=== PATIENT | male | born 1940 | race Caucasian/White ===

== ENCOUNTER 2017-12-08 10:41 | Emergency (ER) | payer MEDICARE ==
[~2017-12-08] VITALS: Ht 172.7 cm; Wt 72.6 kg
[~2017-12-08 10:41] MED LIST: ALPR.5 PO; AMITIZA PO; AZIT250 PO; CIPR500 PO; Colace100 MG PO; DOCU100 PO; DOXY100 PO; HYDCOR20 PO; Kristalose20 GM PO; LACT10SY PO; LORA2 PO; MAGCIT300 PO; MINO100 PO; MIRT15 PO; MIRT30 PO; NABU750 PO; POLY17UD PO; QUET100 PO; QUET25 PO; THYROID; ZOLP10 PO; [UNRECOGNIZED DRUG - OTHER]
[2017-12-08] MEDS ORDERED: ESCI20 PO (10:55)
[2017-12-08] MEDS ORDERED: ESZO2 PO (10:55)
[2017-12-08 11:37] LABS: BASOPHILS ABSOLUTE AUTO 0.03 K/mm3 (0.00-0.23); BASOPHILS PERCENT AUTO 1 % (0-2); EOSINOPHILS ABSOLUTE AUTO 0.04 K/mm3 (0.00-0.68); EOSINOPHILS PERCENT AUTO 1 % (0-6); Hematocrit 41.1 % (37.0-53.0); Hemoglobin 14.5 g/dL (13.5-17.5); IMMATURE GRAN ABSOLUTE AUTO 0.01 K/mm3 (0.00-0.10); IMMATURE GRAN PERCENT AUTO 0 % (0-1); LYMPHOCYTES ABSOLUTE AUTO 0.64 K/mm3 (0.84-5.20); LYMPHOCYTES PERCENT AUTO 17 % (21-46); MONOCYTES ABSOLUTE AUTO 0.42 K/mm3 (0.16-1.47); MONOCYTES PERCENT AUTO 11 % (4-13); Mean Corpuscular HGB 34.4 pg (26.0-34.0); Mean Corpuscular HGB Conc 35.3 g/dL (31.5-36.5); Mean Corpuscular Volume 98 fL (80-100); Mean Platelet Volume 9.1 fL (9.1-12.4); NEUTROPHILS ABSOLUTE AUTO 2.71 K/mm3 (1.96-9.15); NEUTROPHILS PERCENT AUTO 70 % (41-73); Platelet Count 182 K/mm3 (150-400); RDW Coefficient Variation 11.2 % (11.7-14.2); RDW Standard Deviation 40.6 fL (35.1-46.3); Red Blood Cell Count 4.21 M/mm3 (4.30-5.90); White Blood Cell Count 3.85 K/mm3 (4.00-11.30)
[2017-12-08 11:54] LABS: Alanine Aminotransfer (ALT/SGP 20 U/L (12-78); Albumin, Blood 4.2 g/dL (3.4-5.0); Albumin/Globulin Ratio 1.4 (0.8-1.8); Alk Phos 62 U/L (50-136); Anion Gap 7 mmol/L (6-16); Aspartate Aminotrans (AST/SGOT 15 U/L (12-37); Bilirubin, Total 0.7 mg/dL (0.1-1.0); Blood Urea Nitrogen 9 mg/dL (8-24); Bun/Creatinine Ratio 19.3 (12.0-20.0); CO2, Blood 30 mmol/L (21-32); Calcium, Blood 8.6 mg/dL (8.5-10.1); Chloride, Blood 96 mmol/L (98-108); Creatinine, Blood 0.47 mg/dL (0.60-1.20); Glomerular Filtration Rate >60 (60-); Glucose, Blood 98 mg/dL (70-99); Potassium, Blood 4.2 mmol/L (3.5-5.5); Sodium, Blood 133 mmol/L (136-145); Total Protein, Blood 7.2 g/dL (6.4-8.2)
== END 2017-12-08 14:55 | disposition home or self-care (01) ==
LOC: ER 10:41
PROVIDERS: Emergency Medicine
DX: R10.84 Generalized abdominal pain (principal); R10.32 Left lower quadrant pain; Z88.8 Allergy status to other drugs, medicaments and biological substances; Z79.899 Other long term (current) drug therapy; F32.9 Major depressive disorder, single episode, unspecified; Z85.46 Personal history of malignant neoplasm of prostate; Z87.891 Personal history of nicotine dependence
CPT/HCPCS: 36415; 74018; 80053; 81000; 85025; 93005; 93010; 96361; 96374; 96375; 99284; J1885; J2405; J7030

== ENCOUNTER 2019-01-08 00:01 | Emergency (ER) | payer MEDICARE ==
[~2019-01-08] VITALS: Ht 175.3 cm; Wt 79.4 kg
[~2019-01-08 00:01] MED LIST changes: +ESCI20 PO; +ESZO2 PO
[2019-01-08 01:16] LABS: BASOPHILS ABSOLUTE AUTO 0.05 K/mm3 (0.00-0.23); BASOPHILS PERCENT AUTO 1 % (0-2); EOSINOPHILS ABSOLUTE AUTO 0.07 K/mm3 (0.00-0.68); EOSINOPHILS PERCENT AUTO 1 % (0-6); Hematocrit 39.7 % (37.0-53.0); Hemoglobin 13.6 g/dL (13.5-17.5); IMMATURE GRAN ABSOLUTE AUTO 0.02 K/mm3 (0.00-0.10); IMMATURE GRAN PERCENT AUTO 0 % (0-1); LYMPHOCYTES ABSOLUTE AUTO 1.01 K/mm3 (0.84-5.20); LYMPHOCYTES PERCENT AUTO 17 % (21-46); MONOCYTES ABSOLUTE AUTO 0.76 K/mm3 (0.16-1.47); MONOCYTES PERCENT AUTO 13 % (4-13); Mean Corpuscular HGB 33.7 pg (26.0-34.0); Mean Corpuscular HGB Conc 34.3 g/dL (31.5-36.5); Mean Corpuscular Volume 99 fL (80-100); Mean Platelet Volume 9.1 fL (9.1-12.4); NEUTROPHILS ABSOLUTE AUTO 4.13 K/mm3 (1.96-9.15); NEUTROPHILS PERCENT AUTO 68 % (41-73); Platelet Count 185 K/mm3 (150-400); RDW Coefficient Variation 11.4 % (11.7-14.2); RDW Standard Deviation 41.1 fL (35.1-46.3); Red Blood Cell Count 4.03 M/mm3 (4.30-5.90); White Blood Cell Count 6.04 K/mm3 (4.00-11.30)
[2019-01-08 01:30] LABS: Source, Urine Clean Catch
[2019-01-08 01:34] LABS: Bilirubin, Urine Neg (Neg); Blood, Urine Neg (Neg); Glucose Qualitative, Urine Neg (Neg); Ketones, Urine Neg (Neg); Leukocyte Esterase, Urine 1+ (Neg); Nitrite, Urine Neg (Neg); Protein, Urine Neg (Neg); Specific Gravity, Urine 1.015 (1.003-1.022); Urobilinogen, Urine NORM (Normal)
[2019-01-08 01:42] LABS: Appearance, Urine Clear (Clear); Color, Urine Yellow (P-Yellow)
[2019-01-08 01:43] LABS: Amorphous Light (0-Heavy); Bacteria Rare /hpf; Red Blood Cells, Urine Not Seen /hpf (0-2); Squamous Epithelial Cells Rare /hpf (Few); White Blood Cells, Urine 0-2 /hpf (0-5)
[2019-01-08 01:45] LABS: Alanine Aminotransfer (ALT/SGP 25 U/L (12-78); Albumin/Globulin Ratio 1.4 (0.8-1.8); Alk Phos 58 U/L (50-136); Anion Gap 8 mmol/L (6-16); Aspartate Aminotrans (AST/SGOT 18 U/L (12-37); Bilirubin, Total 0.6 mg/dL (0.1-1.0); Blood Urea Nitrogen 21 mg/dL (8-24); Bun/Creatinine Ratio 38.7 (12.0-20.0); CO2, Blood 29 mmol/L (21-32); Calcium, Blood 8.6 mg/dL (8.5-10.1); Chloride, Blood 100 mmol/L (98-108); Creatinine, Blood 0.54 mg/dL (0.60-1.20); Globulin, Blood 2.9 g/dL (2.2-4.0); Glomerular Filtration Rate >60 (60-); Glucose, Blood 108 mg/dL (70-99); Potassium, Blood 4.2 mmol/L (3.5-5.5); Sodium, Blood 137 mmol/L (136-145); Total Protein, Blood 6.9 g/dL (6.4-8.2)
== END 2019-01-08 02:45 | disposition home or self-care (01) ==
LOC: ER 00:01
PROVIDERS: Physician Assistant
DX: R42 Dizziness and giddiness (principal); Z88.8 Allergy status to other drugs, medicaments and biological substances; Z79.899 Other long term (current) drug therapy; Z87.891 Personal history of nicotine dependence; W19.XXXA Unspecified fall, initial encounter
CPT/HCPCS: 36415; 80053; 81001; 85025; 87077; 87086; 87186; 99284

== ENCOUNTER 2019-03-16 15:31 | Observation (INO) | payer MEDICARE ==
[~2019-03-16] VITALS: Ht 172.7 cm; Wt 72.6 kg
[2019-03-16 17:50] LABS: BASOPHILS ABSOLUTE AUTO 0.06 K/mm3 (0.00-0.23); BASOPHILS PERCENT AUTO 1 % (0-2); EOSINOPHILS ABSOLUTE AUTO 0.11 K/mm3 (0.00-0.68); EOSINOPHILS PERCENT AUTO 2 % (0-6); Hematocrit 44.5 % (37.0-53.0); IMMATURE GRAN ABSOLUTE AUTO 0.01 K/mm3 (0.00-0.10); IMMATURE GRAN PERCENT AUTO 0 % (0-1); LYMPHOCYTES ABSOLUTE AUTO 1.07 K/mm3 (0.84-5.20); LYMPHOCYTES PERCENT AUTO 18 % (21-46); MONOCYTES ABSOLUTE AUTO 0.78 K/mm3 (0.16-1.47); MONOCYTES PERCENT AUTO 13 % (4-13); Mean Corpuscular HGB 33.9 pg (26.0-34.0); Mean Corpuscular HGB Conc 33.7 g/dL (31.5-36.5); Mean Corpuscular Volume 101 fL (80-100); Mean Platelet Volume 9.4 fL (9.1-12.4); NEUTROPHILS ABSOLUTE AUTO 4.01 K/mm3 (1.96-9.15); NEUTROPHILS PERCENT AUTO 66 % (41-73); Platelet Count 214 K/mm3 (150-400); RDW Coefficient Variation 11.4 % (11.7-14.2); RDW Standard Deviation 42.5 fL (35.1-46.3); Red Blood Cell Count 4.42 M/mm3 (4.30-5.90); White Blood Cell Count 6.04 K/mm3 (4.00-11.30)
[2019-03-16 18:05] LABS: Ethanol (Alcohol), Blood, Med <3 mg/dL; Salicylate <1.7 mg/dL (2.8-20.0)
[2019-03-16 18:12] LABS: Source, Urine Clean Catch
[2019-03-16 18:13] LABS: Alanine Aminotransfer (ALT/SGP 29 U/L (12-78); Albumin, Blood 4.6 g/dL (3.4-5.0); Albumin/Globulin Ratio 1.4 (0.8-1.8); Alk Phos 62 U/L (50-136); Anion Gap 4 mmol/L (6-16); Aspartate Aminotrans (AST/SGOT 17 U/L (12-37); Bilirubin, Total 0.5 mg/dL (0.1-1.0); Blood Urea Nitrogen 20 mg/dL (8-24); Bun/Creatinine Ratio 35.5 (12.0-20.0); CO2, Blood 28 mmol/L (21-32); Calcium, Blood 8.9 mg/dL (8.5-10.1); Chloride, Blood 99 mmol/L (98-108); Creatinine, Blood 0.56 mg/dL (0.60-1.20); Globulin, Blood 3.3 g/dL (2.2-4.0); Glomerular Filtration Rate >60 (60-); Glucose, Blood 95 mg/dL (70-99); Potassium, Blood 3.9 mmol/L (3.5-5.5); Sodium, Blood 131 mmol/L (136-145); Total Protein, Blood 7.9 g/dL (6.4-8.2)
[2019-03-16 18:27] LABS: Appearance, Urine Clear (Clear); Bilirubin, Urine Neg (Neg); Blood, Urine Neg (Neg); Color, Urine Yellow (P-Yellow); Glucose Qualitative, Urine Neg (Neg); Ketones, Urine Neg (Neg); Leukocyte Esterase, Urine Neg (Neg); Nitrite, Urine Neg (Neg); Protein, Urine Neg (Neg); Specific Gravity, Urine 1.005 (1.003-1.022); Urobilinogen, Urine NORM (Normal)
[2019-03-16 18:31] LABS: Acetaminophen, Random <2.0 ug/mL (10.0-30.0)
[2019-03-16 18:49] LABS: U Amphetamine Screen Not Detected; U Barbituate Screen Not Detected; U Benzodiazapine Screen Not Detected; U Buprenorphine Screen Not Detected; U Cannabinoids Screen Not Detected; U Cocaine Screen Not Detected; U Methadone Screen Not Detected; U Methamphetamine Screen Not Detected; U Opiates Screen Not Detected; U Oxycodone Screen Not Detected; U Phencyclidine Screen Not Detected; U Propoxyphene Screen Not Detected
== END 2019-03-17 13:38 | disposition home or self-care (01) ==
LOC: ER 15:31 → EOR 15:32
PROVIDERS: ADMIT Emergency Medicine
DX: F32.9 Major depressive disorder, single episode, unspecified (principal); F34.1 Dysthymic disorder; G20 Parkinson's disease; Z85.46 Personal history of malignant neoplasm of prostate; Z87.891 Personal history of nicotine dependence; Z79.899 Other long term (current) drug therapy; Z88.8 Allergy status to other drugs, medicaments and biological substances
CPT/HCPCS: 36415; 80053; 81003; 82607; 82746; 83880; 84443; 85025; 93005; 93010; 99285-25; G0378; G0480; Q3014

== ENCOUNTER 2022-12-03 16:26 | Inpatient (IN) | payer MEDICARE ==
[~2022-12-03] VITALS: Ht 182.9 cm; Wt 85.7 kg
[~2022-12-03 16:26] MED LIST changes: +AMITIZA24 MC1 PO; +BISA5EC PO; +CARBIDOPA-LEVO1 EA15 PO; +CITRATE OF MAG296 ML PO; +DECARA1250 MC1 PO; +Dicyclomine HCl20 MG PO
[2022-12-03 17:26] LABS: BASOPHILS ABSOLUTE AUTO 0.03 K/mm3 (0.00-0.23); BASOPHILS PERCENT AUTO 1 % (0-2); EOSINOPHILS ABSOLUTE AUTO 0.12 K/mm3 (0.00-0.68); EOSINOPHILS PERCENT AUTO 2 % (0-6); Hematocrit 43.7 % (37.0-53.0); Hemoglobin 15.8 g/dL (13.5-17.5); IMMATURE GRAN ABSOLUTE AUTO 0.02 K/mm3 (0.00-0.10); IMMATURE GRAN PERCENT AUTO 0 % (0-1); LYMPHOCYTES ABSOLUTE AUTO 0.77 K/mm3 (0.84-5.20); LYMPHOCYTES PERCENT AUTO 14 % (21-46); MONOCYTES ABSOLUTE AUTO 1.28 K/mm3 (0.16-1.47); MONOCYTES PERCENT AUTO 23 % (4-13); Mean Corpuscular HGB 34.4 pg (26.0-34.0); Mean Corpuscular HGB Conc 36.2 g/dL (31.5-36.5); Mean Corpuscular Volume 95 fL (80-100); Mean Platelet Volume 10.1 fL (9.1-12.4); NEUTROPHILS ABSOLUTE AUTO 3.39 K/mm3 (1.96-9.15); NEUTROPHILS PERCENT AUTO 61 % (41-73); Platelet Count 129 K/mm3 (150-400); RDW Coefficient Variation 11.5 % (11.7-14.2); RDW Standard Deviation 40.4 fL (35.1-46.3); Red Blood Cell Count 4.59 M/mm3 (4.30-5.90); White Blood Cell Count 5.61 K/mm3 (4.00-11.30)
[2022-12-03 17:40] LABS: Albumin, Blood 3.9 g/dL (3.4-5.0); Albumin/Globulin Ratio 1.2 (0.8-1.8); Bilirubin, Total 0.5 mg/dL (0.1-1.0); Bun/Creatinine Ratio 35.8 (12.0-20.0); Calcium, Blood 8.4 mg/dL (8.5-10.1); Creatinine, Blood 0.56 mg/dL (0.60-1.20); Globulin, Blood 3.3 g/dL (2.2-4.0); Potassium, Blood 3.9 mmol/L (3.5-5.5); Total Protein, Blood 7.2 g/dL (6.4-8.2)
[2022-12-03 18:47] LABS: Source, Urine Voided
[2022-12-03 19:05] LABS: Magnesium, Blood 2.2 mg/dL (1.6-2.4)
[2022-12-03 19:12] LABS: Appearance, Urine Clear (Clear); Bilirubin, Urine Neg (Neg); Blood, Urine 5+ (Neg); Color, Urine Amber (P-Yellow); Glucose Qualitative, Urine Neg (Neg); Ketones, Urine 1+ (Neg); Leukocyte Esterase, Urine Neg (Neg); Nitrite, Urine Neg (Neg); Protein, Urine 3+ (Neg); Specific Gravity, Urine 1.015 (1.003-1.022); Urobilinogen, Urine NORM (Normal)
[2022-12-03 19:12] LABS: Creatine Kinase MB 41.1 ng/mL (0.0-3.6); Thyroid Stimulating Hormone 1.55 uIU/mL (0.360-4.800)
[2022-12-03 19:24] LABS: Bacteria Mod /hpf; Squamous Epithelial Cells Rare /hpf (Few)
[2022-12-03 19:34] LABS: Influenza A, PCR NEGATIVE (NEGATIVE); Influenza B, PCR NEGATIVE (NEGATIVE); Resp Syncytial Virus, PCR NEGATIVE (NEGATIVE)
[2022-12-03 19:36] LABS: Creatine Kinase MB Index 0.7 (0.0-4.0)
[2022-12-03 19:41] LABS: SARS-Cov-2 (COVID-19) PCR, MMC POSITIVE (NEGATIVE)
[2022-12-04 05:36] LABS: BASOPHILS ABSOLUTE AUTO 0.03 K/mm3 (0.00-0.23); BASOPHILS PERCENT AUTO 1 % (0-2); EOSINOPHILS ABSOLUTE AUTO 0.02 K/mm3 (0.00-0.68); EOSINOPHILS PERCENT AUTO 0 % (0-6); Hematocrit 41.2 % (37.0-53.0); Hemoglobin 14.6 g/dL (13.5-17.5); IMMATURE GRAN ABSOLUTE AUTO 0.01 K/mm3 (0.00-0.10); IMMATURE GRAN PERCENT AUTO 0 % (0-1); LYMPHOCYTES ABSOLUTE AUTO 1.18 K/mm3 (0.84-5.20); LYMPHOCYTES PERCENT AUTO 25 % (21-46); MONOCYTES ABSOLUTE AUTO 1.18 K/mm3 (0.16-1.47); MONOCYTES PERCENT AUTO 25 % (4-13); Mean Corpuscular HGB 34.2 pg (26.0-34.0); Mean Corpuscular HGB Conc 35.4 g/dL (31.5-36.5); Mean Corpuscular Volume 97 fL (80-100); Mean Platelet Volume 9.6 fL (9.1-12.4); NEUTROPHILS ABSOLUTE AUTO 2.37 K/mm3 (1.96-9.15); NEUTROPHILS PERCENT AUTO 50 % (41-73); Platelet Count 110 K/mm3 (150-400); RDW Coefficient Variation 11.6 % (11.7-14.2); Red Blood Cell Count 4.27 M/mm3 (4.30-5.90); White Blood Cell Count 4.79 K/mm3 (4.00-11.30)
--- NOTE | 2022-12-04 06:10 | NUR ---
Melody admitted from ed last evening, resting in bed at this time, no episodes overnight.
[2022-12-04 06:23] LABS: Albumin, Blood 3.3 g/dL (3.4-5.0); Albumin/Globulin Ratio 1.1 (0.8-1.8); Bilirubin, Total 0.5 mg/dL (0.1-1.0); Bun/Creatinine Ratio 25.4 (12.0-20.0); Creatinine, Blood 0.55 mg/dL (0.60-1.20); Globulin, Blood 2.9 g/dL (2.2-4.0); Potassium, Blood 3.7 mmol/L (3.5-5.5); Total Protein, Blood 6.2 g/dL (6.4-8.2)
[2022-12-04] MEDS ORDERED: TAMS.4ER PO (11:17)
[2022-12-04] MEDS ORDERED: POTA10T PO (11:20)
--- NOTE | 2022-12-04 19:43 | NUR ---
SHIFT SUMMARY: PT A/O X 3 TOO WEAK TO GET OOB THIS AM. PLEASANT AND COOPERATIVE WITH CARE. PT DID IMPROVE THROUGHOUT THE DAY AND WAS ABLE TO GET UP TO CHAIR MOST OF THE DAY AFTER OT WORKED WITH HIM. PT EATING WELL. PT HAS NO RESPIRATORY SYMPTOMS AT THIS TIME.
--- NOTE | 2022-12-05 04:21 | NUR ---
SHIFT SUMMARY A&O X 2-3. VSS. ASSIST X 1. PLEASANT AND COOPERATIVE WITH STAFF. SLEPT OFF AND ON IN BETWEEN CARE. WEARS ATTENDS. BED ALARM ON. WILL CONTINUE TO MONITOR.
--- NOTE | 2022-12-05 16:36 | NUR ---
DISCHARGE SUMMARY: PT DISCHARGED BACK HOME TODAY. PT EDUCATED ON DISCHARGE MEDICATIONS AND INSTRUCTIONS AND HOME FALL PREVENTION. PT VU. PT SENT HOME WITH URINAL TO USE AT BEDSIDE. [facility] NOTIFIED PT WILL BE GOING BACK HOME TODAY AND WILL NEED CAREGIVERS TO RESUME SCHEDULE. PT ABLE TO SELF TX INTO WHEELCHEER PRIOR TO LEAVING. PT ESCORTED TO POV WITH DAUGHTER LISETH BY [employer]. BELONGINGS PACKED AND SENT WITH PT.
== END 2022-12-05 16:31 | disposition home or self-care (01) | DRG 557 ==
LOC: ER 16:26 → MEDS 20:50
PROVIDERS: Emergency Medicine; Student in an Organized Health Care Education/Training Program; ADMIT Family Medicine
DX: M62.82 Rhabdomyolysis (principal); U07.1 COVID-19; R82.1 Myoglobinuria; F32.A Depression, unspecified; Z66 Do not resuscitate; Z51.5 Encounter for palliative care; E86.0 Dehydration; G20 Parkinson's disease; D69.6 Thrombocytopenia, unspecified; W18.30XA Fall on same level, unspecified, initial encounter; Z88.8 Allergy status to other drugs, medicaments and biological substances; Z85.46 Personal history of malignant neoplasm of prostate; Z98.890 Other specified postprocedural states; Z79.899 Other long term (current) drug therapy; Z87.891 Personal history of nicotine dependence
CPT/HCPCS: 0241U; 36415; 70450; 71046; 80053; 81001; 82550; 82553; 83735; 83880; 84443; 84484; 85025; 87086; 93005; 93010; 96360; 97116; 97162; 97166; 97530; 99285-25; A9270; J7030

== ENCOUNTER 2024-05-30 03:09 | Emergency (ER) | payer MEDICARE ==
[~2024-05-30] VITALS: Ht 172.7 cm; Wt 72.6 kg
[~2024-05-30 03:09] MED LIST changes: +POTA10T PO; +TAMS.4ER PO
[2024-05-30 03:50] LABS: BASOPHILS ABSOLUTE AUTO 0.06 K/mm3 (0.00-0.23); BASOPHILS PERCENT AUTO 1 % (0-2); EOSINOPHILS ABSOLUTE AUTO 0.22 K/mm3 (0.00-0.68); EOSINOPHILS PERCENT AUTO 5 % (0-6); Hematocrit 42.7 % (37.0-53.0); Hemoglobin 14.4 g/dL (13.5-17.5); IMMATURE GRAN ABSOLUTE AUTO 0.01 K/mm3 (0.00-0.10); IMMATURE GRAN PERCENT AUTO 0 % (0-1); LYMPHOCYTES ABSOLUTE AUTO 1.43 K/mm3 (0.84-5.20); LYMPHOCYTES PERCENT AUTO 30 % (21-46); MONOCYTES ABSOLUTE AUTO 0.55 K/mm3 (0.16-1.47); MONOCYTES PERCENT AUTO 12 % (4-13); Mean Corpuscular HGB Conc 33.7 g/dL (31.5-36.5); Mean Corpuscular Volume 101 fL (80-100); Mean Platelet Volume 9.2 fL (9.1-12.4); NEUTROPHILS ABSOLUTE AUTO 2.49 K/mm3 (1.96-9.15); NEUTROPHILS PERCENT AUTO 52 % (41-73); Platelet Count 169 K/mm3 (150-400); RDW Coefficient Variation 11.6 % (11.7-14.2); RDW Standard Deviation 42.7 fL (35.1-46.3); Red Blood Cell Count 4.24 M/mm3 (4.30-5.90); White Blood Cell Count 4.76 K/mm3 (4.00-11.30)
[2024-05-30 04:03] LABS: Albumin, Blood 4.3 g/dL (3.4-5.0); Albumin/Globulin Ratio 1.5 (0.8-1.8); Bilirubin, Total 0.9 mg/dL (0.1-1.0); Bun/Creatinine Ratio 18.1 (12.0-20.0); Calcium, Blood 8.5 mg/dL (8.5-10.1); Creatinine, Blood 0.61 mg/dL (0.60-1.20); Globulin, Blood 2.9 g/dL (2.2-4.0); Potassium, Blood 3.7 mmol/L (3.5-5.5); Total Protein, Blood 7.2 g/dL (6.4-8.2)
[2024-05-30 04:43] LABS: Source, Urine Clean Catch
[2024-05-30 04:52] LABS: Bilirubin, Urine Neg (Neg); Blood, Urine Neg (Neg); Glucose Qualitative, Urine Neg (Neg); Ketones, Urine Neg (Neg); Leukocyte Esterase, Urine Neg (Neg); Nitrite, Urine Neg (Neg); Protein, Urine Neg (Neg); Urobilinogen, Urine NORM (Normal)
[2024-05-30 05:00] VITALS: BP 145/79
[2024-05-30 05:03] LABS: Appearance, Urine Clear (Clear); Color, Urine Yellow (P-Yellow)
[2024-05-30] MEDS ORDERED: Tamsulosin HCl 0.4 MG Cap PO ONE (05:15)
[2024-05-30] MEDS ORDERED: TAMS.4ER PO (06:10)
== END 2024-05-30 08:14 | disposition home or self-care (01) ==
LOC: ER 03:09
PROVIDERS: Student in an Organized Health Care Education/Training Program
DX: R33.9 Retention of urine, unspecified (principal); Z87.891 Personal history of nicotine dependence; Z79.899 Other long term (current) drug therapy; Z91.041 Radiographic dye allergy status; Z88.8 Allergy status to other drugs, medicaments and biological substances
CPT/HCPCS: 51798; 80053; 81003; 85025; 99283-25; A9270

== ENCOUNTER → 2024-09-09 | Outpatient (CLI) | payer MEDICARE ==
[2024-09-09 09:25] LABS: Source, Urine Voided
[2024-09-09 10:47] LABS: Bilirubin, Urine Neg (Neg); Blood, Urine Neg (Neg); Glucose Qualitative, Urine Neg (Neg); Ketones, Urine Neg (Neg); Leukocyte Esterase, Urine Neg (Neg); Nitrite, Urine Neg (Neg); Protein, Urine Neg (Neg); Urobilinogen, Urine NORM (Normal); pH, Urine 6.5 (5.0-8.0)
[2024-09-09 11:18] LABS: Appearance, Urine Clear (Clear); Color, Urine Yellow (P-Yellow)
== END | disposition home or self-care (01) ==
LOC: LAB 09:23 → LAB SHORT 09:23
PROVIDERS: Family Medicine
DX: N39.0 Urinary tract infection, site not specified (principal)
CPT/HCPCS: 81003

== ENCOUNTER 2024-10-18 09:31 | Emergency (ER) | payer MEDICARE ==
[~2024-10-18] VITALS: Ht 172.7 cm; Wt 77.1 kg
[2024-10-18] MEDS ORDERED: ACET325 PO (10:09)
[2024-10-18] MEDS ORDERED: Levodopa/Carbidopa 100 / 25 MG Tab PO ONE (10:10)
[2024-10-18] MEDS ORDERED: BISA5EC PO (10:10)
[2024-10-18] MEDS ORDERED: SIME80CH PO (10:11)
[2024-10-18 10:47] LABS: BASOPHILS ABSOLUTE AUTO 0.07 K/mm3 (0.00-0.23); BASOPHILS PERCENT AUTO 2 % (0-2); EOSINOPHILS ABSOLUTE AUTO 0.17 K/mm3 (0.00-0.68); EOSINOPHILS PERCENT AUTO 4 % (0-6); Hematocrit 43.6 % (37.0-53.0); Hemoglobin 15.1 g/dL (13.5-17.5); IMMATURE GRAN ABSOLUTE AUTO 0.01 K/mm3 (0.00-0.10); IMMATURE GRAN PERCENT AUTO 0 % (0-1); LYMPHOCYTES ABSOLUTE AUTO 1.16 K/mm3 (0.84-5.20); LYMPHOCYTES PERCENT AUTO 24 % (21-46); MONOCYTES ABSOLUTE AUTO 0.55 K/mm3 (0.16-1.47); MONOCYTES PERCENT AUTO 12 % (4-13); Mean Corpuscular HGB 34.4 pg (26.0-34.0); Mean Corpuscular HGB Conc 34.6 g/dL (31.5-36.5); Mean Corpuscular Volume 99 fL (80-100); Mean Platelet Volume 9.1 fL (9.1-12.4); NEUTROPHILS PERCENT AUTO 59 % (41-73); Platelet Count 155 K/mm3 (150-400); RDW Coefficient Variation 12.2 % (11.7-14.2); RDW Standard Deviation 44.8 fL (35.1-46.3); Red Blood Cell Count 4.39 M/mm3 (4.30-5.90); White Blood Cell Count 4.76 K/mm3 (4.00-11.30)
[2024-10-18 11:21] LABS: Albumin, Blood 3.6 g/dL (3.4-5.0); Albumin/Globulin Ratio 1.2 (0.8-1.8); Bun/Creatinine Ratio 19.5 (12.0-20.0); Calcium, Blood 8.6 mg/dL (8.5-10.1); Creatinine, Blood 0.51 mg/dL (0.60-1.20); Globulin, Blood 3.1 g/dL (2.2-4.0); Potassium, Blood 3.8 mmol/L (3.5-5.5); Total Protein, Blood 6.7 g/dL (6.4-8.2)
[2024-10-18] MEDS ORDERED: MIRALAX17 GM PO (12:35)
[2024-10-18] MEDS ORDERED: CARBLEV25 SL (12:35)
[2024-10-18 12:36] VITALS: BP 132/80
== END 2024-10-18 13:00 | disposition home or self-care (01) ==
LOC: ER 09:31
PROVIDERS: Student in an Organized Health Care Education/Training Program
DX: K59.00 Constipation, unspecified (principal); Z76.0 Encounter for issue of repeat prescription; Z87.891 Personal history of nicotine dependence; Z79.899 Other long term (current) drug therapy; Z88.8 Allergy status to other drugs, medicaments and biological substances
CPT/HCPCS: 74177; 80053; 85025; 99284-25; A9270; Q9967

== ENCOUNTER 2024-12-03 10:20 | Inpatient (IN) | payer OTHER, MEDICARE ==
[~2024-12-03] VITALS: Ht 175.3 cm; Wt 78.7 kg
[~2024-12-03 10:20] MED LIST changes: +ACET325 PO; +CARBLEV25 SL; +MIRALAX17 GM PO; +SIME80CH PO
[2024-12-03 12:46] LABS: BASOPHILS ABSOLUTE AUTO 0.05 K/mm3 (0.00-0.23); BASOPHILS PERCENT AUTO 1 % (0-2); EOSINOPHILS ABSOLUTE AUTO 0.01 K/mm3 (0.00-0.68); EOSINOPHILS PERCENT AUTO 0 % (0-6); Hematocrit 43.2 % (37.0-53.0); IMMATURE GRAN ABSOLUTE AUTO 0.03 K/mm3 (0.00-0.10); IMMATURE GRAN PERCENT AUTO 1 % (0-1); LYMPHOCYTES ABSOLUTE AUTO 0.85 K/mm3 (0.84-5.20); LYMPHOCYTES PERCENT AUTO 15 % (21-46); MONOCYTES ABSOLUTE AUTO 1.24 K/mm3 (0.16-1.47); MONOCYTES PERCENT AUTO 22 % (4-13); Mean Corpuscular HGB 34.1 pg (26.0-34.0); Mean Corpuscular HGB Conc 34.7 g/dL (31.5-36.5); Mean Corpuscular Volume 98 fL (80-100); NEUTROPHILS PERCENT AUTO 62 % (41-73); Platelet Count 152 K/mm3 (150-400); RDW Coefficient Variation 12.1 % (11.7-14.2); RDW Standard Deviation 44.1 fL (35.1-46.3); White Blood Cell Count 5.78 K/mm3 (4.00-11.30)
[2024-12-03 13:10] LABS: Albumin, Blood 4.1 g/dL (3.4-5.0); Albumin/Globulin Ratio 1.1 (0.8-1.8); Bilirubin, Total 0.9 mg/dL (0.1-1.0); Bun/Creatinine Ratio 35.5 (12.0-20.0); Creatinine, Blood 0.59 mg/dL (0.60-1.20); Globulin, Blood 3.7 g/dL (2.2-4.0); Potassium, Blood 3.9 mmol/L (3.5-5.5); Total Protein, Blood 7.8 g/dL (6.4-8.2)
[2024-12-03 13:13] LABS: Source, Urine Clean Catch
[2024-12-03 13:21] LABS: Appearance, Urine Hazy (Clear); Bilirubin, Urine Neg (Neg); Blood, Urine 2+ (Neg); Color, Urine Yellow (P-Yellow); Glucose Qualitative, Urine Neg (Neg); Ketones, Urine 2+ (Neg); Leukocyte Esterase, Urine Neg (Neg); Nitrite, Urine Neg (Neg); Protein, Urine 2+ (Neg); Urobilinogen, Urine 1+ (Normal)
[2024-12-03 13:29] LABS: Bacteria Rare /hpf; Mucus Light (0-Heavy); Squamous Epithelial Cells Rare /hpf (Few); White Blood Cells, Urine 0-2 /hpf (0-5)
[2024-12-03 16:41] LABS: CORONAVIRUS COVID-19 AG Negative (NEGATIVE); INFLUENZA A AG Positive (NEGATIVE); INFLUENZA B AG Negative (NEGATIVE)
[2024-12-03] MEDS ORDERED: Acetaminophen 500 MG Tab PO ONE (18:25)
[2024-12-03] MEDS ORDERED: Ondansetron HCl 2 MG / ML 2ML Vial IV PRN (18:40)
[2024-12-03] MEDS ORDERED: FLU VACC TS2024-25(6MOS UP)/PF 45 MCG/0.5 ML SYRINGE IM ONE (18:40)
[2024-12-03] MEDS ORDERED: Acetaminophen 500 MG Tab PO PRN (18:45)
[2024-12-03] MEDS ORDERED: Oseltamivir Phosphate 75 MG Cap PO SCH (19:00)
[2024-12-03] MEDS ORDERED: Levodopa/Carbidopa 100 / 25 MG Tab PO SCH (21:00)
[2024-12-03 21:46] VITALS: BP 104/66
[2024-12-04 05:01] VITALS: BP 115/63
--- NOTE | 2024-12-04 05:25 | NUR ---
SHIFT SUMMARY NOC PT A/O X 3-4, [place] RESERVATION. VERY TIRED AND FATIGUED. PLEASANT AND COOPERATIVE WITH CARE. VSS. ADMIT FROM ED WITH INFLUENZA A, WITH INCREASED WEAKNESS OVER THE PAST 3 DAYS AND UNABLE TO PERFORM ADL'S. PT IS RESIDENT AND THE [place] DENN[place]. PT IS ON RA SPO2 >95%, DENIES SOB. ON TAMIFLU RX FOR TX. PUREWICK IN PLACE R/T WEAKNESS. PT REPORTS HAVING POLST FILLED OUT AND REQUESTING DNR CODE STATUS, WILL PUT UPDATED POLST ON FRONT OF CHART AND PASS ALONG TO DAY RN TO COMPLETE. PT CURRENTLY RESTING WITH BED IN LOWEST POSITION, AND CALL LIGHT WITHIN REACH.
[2024-12-04 05:46] LABS: Bun/Creatinine Ratio 24.8 (12.0-20.0); Calcium, Blood 8.3 mg/dL (8.5-10.1); Creatinine, Blood 0.65 mg/dL (0.60-1.20); Magnesium, Blood 2.4 mg/dL (1.6-2.4); Potassium, Blood 3.7 mmol/L (3.5-5.5)
[2024-12-04] MEDS ORDERED: Omeprazole 20 MG CapCR PO SCH (06:00)
[2024-12-04 07:20] VITALS: BP 99/65
[2024-12-04] MEDS ORDERED: Enoxaparin 40 MG/0.4 ML SYR SC SCH (09:00)
[2024-12-04] MEDS ORDERED: Furosemide 40 MG Tab PO SCH (09:00)
[2024-12-04 15:33] VITALS: BP 119/67
[2024-12-04] MEDS ORDERED: Levodopa/Carbidopa 100 / 25 MG Tab PO SCH (17:00)
--- NOTE | 2024-12-04 18:42 | NUR ---
SHIFT SUMMARY PT CONT LEVEL OF CARE. PT NOTED TO BE A&O X3. PT C/O WEAKNESS TO BLE THIS SHIFT. PT NOTED TO BE CONT/INCONT OF BLADDER ATTENDS IN PLACE AND CHANGED PRN. PT NOTED TO WORK WITH THERAPY THIS SHIFT. THERAPY RECOMMENDED SNF LEVEL OF CARE BUT STATED PT MAY BE ABLE TO GO BACK TO THE [place] WITH HOME HEALTH DEPENDING ON IMPROVEMENT PRIOR TO DC.
[2024-12-04 19:26] VITALS: BP 105/61
[2024-12-05 02:15] VITALS: BP 118/66
--- NOTE | 2024-12-05 03:43 | NUR ---
PT HAD C/O OF CONSTIPATION, AND STATES NO BM IN LAST [address] SHOWED MODERATE RETAINED COLONIC STOOL WITH CORRELATION FOR CONSTIPATION. HOSPITALIST NOTIFIED AND BOWEL CARE SET ORDERED TO BEGIN TODAY.
[2024-12-05] MEDS ORDERED: Bisacodyl 10 MG Supp PR PRN (03:45)
[2024-12-05] MEDS ORDERED: Magnesium Hydroxide Conc 10 ML UDC PO PRN (03:45)
--- NOTE | 2024-12-05 05:33 | NUR ---
SHIFT SUMMARY NOC PT A/O X 3-4. [place]. PLEASANT AND COOPERATIVE WITH CARE. VSS. PT AGREED TO TAKE BEDTIME DOSE OF TAMIFLU ALONG WITH SENIMET AFTERBEING EDUCATED ON RATIONALE FOR TAKING IT. 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 AROUND 0300 PT HAD C/O OF CONSTIPATION AND REPORTS NO BM IN 10 DAYS, BOWEL CARE ORDER SET IN PLACE. PT REQUESTED DULCOLAX SPECIFICALLY TO TRY FIRST. PT ASLEEP WHEN DULCOLAX ATTEMPTED TO BE GIVEN, SO HELD UNTIL ALERT. PT IN DROPLET ISOLATION FOR INFLUENZA A. PT CURRENTLY RESTING WITH BED ALARM ON, BED IN LOWEST POSITION, AND CALL LIGHT WITHIN REACH.
[2024-12-05 07:22] VITALS: BP 116/63
[2024-12-05] MEDS ORDERED: Docusate Sodium 100 MG Cap PO SCH (09:00)
[2024-12-05] MEDS ORDERED: Sennosides 8.6 MG Tab PO SCH (09:00)
[2024-12-05 16:14] VITALS: BP 100/60
--- NOTE | 2024-12-05 18:05 | NUR ---
SHIFT SUMMARY PT CONT LEVEL OF CARE. PT NOTED TO BE A&OX3 WITH MAX ASSIST WITH REPOSITIONING. PT NOTED TO BE FIXATED ON BOWELS BUT REFUSED BOWEL SENNA AND COLACE THIS MORNING. PT NOTED TO HAVE SUPPOSITORY AROUND 0630 AND BM NOTED LATER ON THIS SHIFT. PT ALSO REFUSED TAMIFLU AND LOVENOX THIS SHIFT. CONT TO AWAIT ON SNF PLACEMENT.
[2024-12-05 19:28] VITALS: BP 99/59
[2024-12-06 03:55] VITALS: BP 107/61
--- NOTE | 2024-12-06 06:18 | NUR ---
SHIFT SUMMARY NOC PT A/O X 3-4. FLAT AND WITHDRAWN AFFECT. REFUSED ALL BEDTIME RX EXCEPT CARBADOPA LEVADOPA FOR THIER PARKINSON'S, AND BELIEVES THAT TAMIFLU WILL CAUSE FLU SYMPTOMS TO WORSEN. PT REMAINS VERY WEAK REQUIRING 2 PERSON MAX ASSISTENCE FOR CARE AND ASSISTENCE TO HOLD CUP TO DRINK WATER. PT ALSO CONTINUES TO BE INCONTINENT OF BOTH URINE/STOOL. PT/OT HAVE RECOMMENDED SNF PLACEMENT AND PT DAUGHTER WANTS TO LOOK UP VARIOUS SNF FACILITIES BEFORE CHOOSING. PT CURRENTLY IN DROPLET ISOLATION FOR FLU A, BED ALARM ON, BED IN LOWEST POSITION, AND CALL LIGHT WITHIN REACH.
[2024-12-06 07:33] VITALS: BP 110/67
--- NOTE | 2024-12-06 17:27 | NUR ---
SHIFT SUMMARY PT AOX3-4, ABLE TO MAKES NEEDS KNONW. HE CALLS. BA/CA ON, UP TO THE CHAIR THIS AFTERNOON. NO ACUTE COMPLAINTS. PT REPOSITIONED THROUGHOUT THE SHIFT, BRIEF CHANGED NEEDED. REFUSED SOME OF HIS AM MEDICATIONS, THIS NURSE PROVIDED THOROUGH EDUCATION REGARDING THE IMPORTANCE OF THE MEDICATIONS BUT THE PT REFUSED. CALL LIGHT WITHIN REACH, BED LOCKED AND IN THE LOWEST POSITION. WILL REPORT TO ONCOMING NURSE.
[2024-12-06 20:08] VITALS: BP 109/72
--- NOTE | 2024-12-07 03:04 | NUR ---
SHIFT SUMMARY PT IS A/O X2-3, CONFUSED, ATTEMPTED TO GET OUT OF BED DURING NIGHT HRS. BED ALARM FOR SAFETY. PT TOOK ALL HIS SCHEDULED HS MEDICATIONS, INCLUDING TAMIFLU W/O COMPLAINTS. HAIR WASHED AT HS. PT ABLE TO FEED HIMSELF DINNER DURING THE SHIFT CHANGE. NO ACUTE DISTRESS/EVENTS DURING THIS SHIFT. BED AT THE LOWEST POSITION, CALL LIGHT W/I REACH. PT IS ABLE TO MAKE HIS NEEDS KNOWN, AND COOPERATIVE WITH CARE. BED ALARM ON.
[2024-12-07 04:58] VITALS: BP 114/68
[2024-12-07 07:23] VITALS: BP 104/64
--- NOTE | 2024-12-07 13:21 | NUR ---
NOTE: ATTEMPTED TO GIVE REPORT TO [facility], ATTEMPT WAS NOT SUCCESSFUL.
--- NOTE | 2024-12-07 14:39 | NUR ---
DISCHARGE NOTE PT DISCHARGE TO NR, ATTEMPTED TO CALL REPORT WITH NO SUCCESS. IV REMOVED. PT DRESSED IN CLOTH SCRUBS. [facility] PICKED THE PT UP BY WC. PACKET PROVIDED TO THE CONTRACTS OFFICER. PERSONAL BELONGINGS RETURNED. NO ACUTE CHANGES PRIOR TO THE DC. WILL ATTEMPT TO GIVE REPORT AGAIN.
--- NOTE | 2024-12-07 14:45 | NUR ---
NOTE: REPORT GIVEN TO HAWA RAYMOND, AT [facility] AT 1445.
[2024-12-07] MEDS ORDERED: DOCU100 PO (14:55)
== END 2024-12-07 14:23 | DRG 194 ==
LOC: ER 10:20 → MEDS 10:21 → ERHOLD 10:21 → MEDS 21:38
PROVIDERS: Nurse Practitioner Acute Care; Student in an Organized Health Care Education/Training Program; ADMIT Internal Medicine
DX: J10.1 Influenza due to other identified influenza virus with other respiratory manifestations (principal); F05 Delirium due to known physiological condition; G20.A1 Parkinson's disease without dyskinesia, without mention of fluctuations; F32.A Depression, unspecified; N40.0 Benign prostatic hyperplasia without lower urinary tract symptoms; K29.70 Gastritis, unspecified, without bleeding; F02.80 Dementia in other diseases classified elsewhere, unspecified severity, without behavioral disturbance, psychotic disturbance, mood disturbance, and anxiety; Z91.041 Radiographic dye allergy status; Z85.46 Personal history of malignant neoplasm of prostate; Z87.891 Personal history of nicotine dependence; Z88.8 Allergy status to other drugs, medicaments and biological substances; Z79.891 Long term (current) use of opiate analgesic; Z79.899 Other long term (current) drug therapy; Z98.890 Other specified postprocedural states
CPT/HCPCS: 36415; 74177; 80048; 80053; 81001; 82947; 83690; 83735; 85025; 87428-QW; 93005; 93010; 96372; 97110; 97116; 97162; 97165; 97530; 99285-25; A9270; G0378; J1650; Q9967

== ENCOUNTER → 2025-02-14 | Outpatient (CLI) | payer OTHER ==
[2025-02-16 10:46] LABS: Source, Urine Voided
[2025-02-16 12:01] LABS: Appearance, Urine Clear (Clear); Bilirubin, Urine Neg (Neg); Blood, Urine Neg (Neg); Color, Urine Yellow (P-Yellow); Glucose Qualitative, Urine Neg (Neg); Ketones, Urine Neg (Neg); Leukocyte Esterase, Urine Neg (Neg); Nitrite, Urine Neg (Neg); Protein, Urine Neg (Neg); Urobilinogen, Urine NORM (Normal)
== END | disposition home or self-care (01) ==
LOC: LAB 10:44 → LAB SHORT 10:44
PROVIDERS: Family Medicine
DX: N39.0 Urinary tract infection, site not specified (principal)
CPT/HCPCS: 81003